=== PATIENT | female | born 1980 | race Caucasian/White ===

== ENCOUNTER → 2019-08-08 | Outpatient (CLI) | payer BC ==
[2019-08-08 13:50] LABS: Basophils % (A) 1 %; Eosinophils # (A) 0.2 k/uL (0-0.7); Eosinophils % (A) 3 %; HCT 33.5 % (34.0-46.0); HGB 10.5 gm/dL (11.4-16.0); Lymphocytes # (A) 1.8 k/uL (1.0-4.8); Lymphocytes % (A) 33 %; MCH 26.6 pg (25.0-35.0); MCHC 31.2 g/dL (31.0-37.0); MCV 85.1 fL (80.0-100.0); Mean Platelet Volume 7.8; Monocytes # (A) 0.3 k/uL (0-1.0); Monocytes % (A) 5 %; Neutrophils % (A) 55 %; Platelet Count 348 k/uL (150-450); RBC 3.94 m/uL (3.80-5.40); RDW 15.6 % (11.5-15.5); WBC 5.4 k/uL (3.8-10.6)
== END | disposition home or self-care (01) ==
LOC: LABPAT 12:21
PROVIDERS: ATTEND Obstetrics & Gynecology
DX: Z01.812 Encounter for preprocedural laboratory examination (principal); N92.0 Excessive and frequent menstruation with regular cycle; N94.6 Dysmenorrhea, unspecified
CPT/HCPCS: 36415; 85025

== ENCOUNTER 2019-08-27 08:59 | Day surgery (SDC) | payer BC ==
[2019-08-23 11:20] VITALS: BMI 25.0
[~2019-08-27 08:59] MED LIST: DEXAMETHASONE SOD PHOSPHATE 10 MG/ML 1 ML VIAL IV ONE; HYDROmorphone 0.5 MG/0.5 ML SYRINGE IVP PRN; LACTATED RINGERS 1,000 ML IV SCH; MIDAZOLAM 2 MG/2 ML VIAL IV PRN; ONDANSETRON 4 MG/2 ML VIAL IVP ONE; Pre Op ABX Message 1 EACH MISC MISCELLANE ONE; SCOPOLAMINE 1.5MG/72HR PATCH TRANSDERM ONE
[2019-08-27] MEDS ORDERED: MIDAZOLAM 2 MG/2 ML VIAL ONE (09:51)
[2019-08-27] MEDS ORDERED: fentaNYL (PF) 50 MCG/ML 2 ML AMP ONE (09:51)
[2019-08-27] MEDS ORDERED: PROPOFOL 10 MG/ML 20 ML VIAL IV ONE (09:51)
[2019-08-27] MEDS ORDERED: KETOROLAC 30 MG/ML 1 ML VIAL ONE (09:51)
[2019-08-27] MEDS ORDERED: LIDOCAINE 1% INJ 10MG/ML (20 ML MDV) ONE (09:51)
[2019-08-27] MEDS ORDERED: SILVER NITRATE APPLICATOR 1 EACH STICK..EA. TOPICAL ONE (10:19)
[2019-08-27 10:37] VITALS: TEMP 97
--- NOTE | 2019-08-27 10:38 | P.OP ---
Date of Procedure: 08/27/19 Preoperative Diagnosis: Menorrhagia, dysmenorrhea. Postoperative Diagnosis: Same, normal-appearing intrauterine cavity Procedure(s) Performed: Hysteroscopy, NovaSure endometrial ablation Anesthesia: LOVELYA Surgeon: Kristen Alvarado [employer] Supervisor #1: Stated None Estimated Blood Loss (ml): 25 IV fluids (ml): 400 Urine output (ml): 400 Pathology: none sent Condition: stable Disposition: PACU Operative Findings: Retroverted uterus, essentially negative appearing intrauterine cavity Description of Procedure: Patient is brought to the operating suite where a general anesthetic is administered without difficulty. She's placed in the dorsal lithotomy position. The cervix, vagina, perineal bodies are all prepped and draped in the usual sterile fashion. Urine hCG is negative. The appropriate timeout is performed to assure proper patient and procedural identification. Examination under anesthesia reveals a small retroverted uterus, negative adnexa bilaterally. The bladder is drained for approximately 400 mL of clear yellow urine. The anterior lip of the cervix is grasped with a double-tooth tenaculum. The uterus sounds to a depth of 9.5 cm in the retroverted position. Cervical length is 3 cm. Cervix is gently and systematically dilated using Hanks dilators. Hysteroscope was placed and the cavity is infused with sterile saline. Cavity inspection is negative, no polyps fibroids septa or defects. Hysteroscope was removed. NovaSure wand is placed. It is seated properly. Uterine length of 6.5 cm, width of 4.6 cm is calibrated. The machine is enabled. For 35 seconds with a power of 164 W the procedure is carried out. When it is completed the wand is reduced and removed. Hysteroscope was once again introduced. The cavity is noted to be uniformly blanched. All sponge needle and enhancement counts are correct. The cervical lip has a small amount of bleeding at the site of the double-tooth tenaculum that is easily controlled with the nitrous stick. Patient is brought back to the recovery room in very good condition with stable vital signs including a blood pressure 110/59, pulse 68, 98% O2 saturation. Toradol is given prior to leaving the operative suite. Patient will follow-up with me in the office in 2 weeks.
[2019-08-27 12:32] VITALS: BP 138/78; PULSE 58; RESP 15
== END 2019-08-27 12:30 | disposition home or self-care (01) ==
LOC: OR 08:59
PROVIDERS: ATTEND Obstetrics & Gynecology
DX: N92.0 Excessive and frequent menstruation with regular cycle (principal); N94.6 Dysmenorrhea, unspecified; Z98.890 Other specified postprocedural states; Z87.891 Personal history of nicotine dependence
CPT/HCPCS: 81025; 58563; J2250; J1100; J2405; J2001; J3010; J1885; J2704

== ENCOUNTER → 2023-02-11 | Outpatient (CLI) | payer BC ==
--- NOTE | 2023-02-14 11:39 | MM ---
Reason for Exam: Screening (asymptomatic). Baseline mammogram. Patient History: Menarche at age 13. First Full-Term at age 27. Patient has history of breast feeding. Last menstrual period: 12/30/2022 Risk Values: Julieta 5 year model risk: 0.7%. NCI Lifetime model risk: 10.9%. Prior Study Comparison: Patient's first Mammogram. Tissue Density: The breast tissue is heterogeneously dense. This may lower the sensitivity of mammography. Findings: Analyzed By CAD. There is no suspicious group of microcalcifications or new suspicious mass in either breast. Overall Assessment: Benign, BI-RAD 2 Management: Screening Mammogram of both breasts in 1 year. . Patient should continue monthly self-breast exams. A clinical breast exam by your physician is recommended on an annual basis. This exam should not preclude additional follow-up of suspicious palpable abnormalities. Note on Julieta scores and lifetime risk: 1. A Julieta score greater than 3% is considered moderate risk. If this is the case, consider specialist referral to assess eligibility for a risk reducing agent. 2. If overall lifetime risk for the development of breast cancer is 20% or higher, the patient may qualify for future screening with alternating mammogram and breast MRI. Electronically signed and approved by: Zeke Henry M.D. [facility]iolog[facility]
== END | disposition home or self-care (01) ==
LOC: RADMAMWWP 15:58
PROVIDERS: ATTEND Family Medicine
DX: Z12.31 Encounter for screening mammogram for malignant neoplasm of breast (principal)
CPT/HCPCS: 77063; 77067